=== PATIENT | female | born 1995 | race Caucasian/White ===

== ENCOUNTER 2016-05-13 11:46 | Emergency (ER) | payer BC ==
[2016-05-13 12:02] VITALS: BP 105/60
--- NOTE | 2016-05-13 12:34 | UC ---
Throat Pain/Nasal Jareth HPI - HPI Summary HPI Summary: patient has had increased sinus pressure over the last few weeks, yesterday it was very painful, denies fever. - History of Current Complaint Chief Complaint: UCRespiratory Stated Complaint: SINUSES Time Seen by Provider: 05/13/16 12:28 Hx Obtained From: Patient Hx Last Menstrual Period: 04/27/16 ?: No Onset/Duration: Sudden Onset, Lasting Days Severity: Severe Cough: Nonproductive Associated Signs & Symptoms: Positive: Sinus Discomfort, Nasal Discharge - Epiglottits Risk Factors Epiglottis Risk Factors: Negative - Allergies/Home Medications Allergies/Adverse Reactions: Allergies Allergy/AdvReac Type Severity Reaction Status Date / Time Penicillins Allergy Intermediate Hives Verified 05/13/16 11:56 Home Medications: Home Medications NK [No Home Medications Reported] 05/13/16 [History Confirmed 05/13/16] PMH/Surg Hx/FS Hx/Imm Hx Previously Healthy: Yes Endocrine History Of: Reports: Thyroid Disease - enlarged Respiratory History Of: Reports: Asthma - exercised induced - Surgical History Surgical History: None - Family History Known Family History: Negative: Cardiac Disease, Hypertension - Social History Alcohol Use: Weekly Substance Use Type: None Smoking Status (MU): Never Smoked Tobacco - Immunization History Most Recent Influenza Vaccination: None Review of Systems Constitutional: Negative Skin: Negative Eyes: Negative ENT: Ear Ache, Nasal Discharge Respiratory: Negative Cardiovascular: Negative Gastrointestinal: Negative Genitourinary: Negative Motor: Negative Neurovascular: Negative Musculoskeletal: Negative Neurological: Headache Psychological: Negative All Other Systems Reviewed And Are Negative: Yes Physical Exam Triage Information Reviewed: Yes Appearance: Well-Nourished, Ill-Appearing, Pain Distress Vital Signs: Initial Vital Signs Temp 98.5 F 05/13/16 11:57 Pulse 67 05/13/16 11:57 Resp 18 05/13/16 11:57 BP 105/60 05/13/16 11:57 Pulse Ox 99 05/13/16 11:57 Vital Signs Reviewed: Yes Eye Exam: Normal Eyes: Positive: Conjunctiva Clear ENT Exam: Normal ENT: Positive: Pharyngeal erythema, Nasal congestion, Nasal drainage, TM bulging Dental Exam: Normal Neck exam: Normal Neck: Positive: Supple, Nontender, No Lymphadenopathy Respiratory Exam: Normal Respiratory: Positive: Chest non-tender, Normal breath sounds, Wheezing, Inspiration Cardiovascular Exam: Normal Cardiovascular: Positive: RRR, No Murmur, Pulses Normal Abdominal Exam: Normal Abdomen Description: Positive: Nontender, No Organomegaly, Soft Bowel Sounds: Positive: Present Musculoskeletal Exam: Normal Musculoskeletal: Positive: Strength Intact, ROM Intact, No Edema Neurological Exam: Normal Neurological: Positive: Alert, Muscle Tone Normal Psychological Exam: Normal Skin Exam: Normal Throat Pain/Nasal Course/Dx - Course Course Of Treatment: hx obtained, exam performed, meds reviewed, educated on manual sinus drainage. prednisone prescribed. - Differential Dx/Diagnosis Differential Diagnosis/HQI/PQRI: Laryngitis, Otitis Media, Pharyngitis, Sinusitis, Tonsillitis, URI Provider Diagnoses: rhinosinusitis. wheezing Discharge - Discharge Plan Condition: Stable Disposition: HOME Patient Education Materials: Rhinosinusitis (ED) Additional Instructions: 1. Use the prednisone as prescribed 2. Use can use flonase 1-2 puffs in each notril daily 3. warm compresses to sinuses. 4. Daily Zyrtec or Claritin for fdc symptoms. 5. Increase your fluid intake
== END 2016-05-13 12:48 | disposition home or self-care (01) ==
LOC: UCCORT 11:46
DX: J32.9 Chronic sinusitis, unspecified (principal); R06.2 Wheezing; Z88.0 Allergy status to penicillin
CPT/HCPCS: 99212; G0463

== ENCOUNTER 2016-10-01 08:38 | Emergency (ER) | payer BC ==
--- NOTE | 2016-10-01 09:06 | UC ---
Lower Extremity/Ankle HPI - HPI Summary HPI Summary: 21 yo F c/o left foot pain after a fall last pm. Pt states it [birth year] her birthday last pm and she had some alcohol and she jumped up to touch a road sign while walking and when she landed she must have landed on her foot wrong and she c/o pain. Denies ankle, knee or hip pain and denies other injury. She did not fall to the ground or hit her head. She states the foot hurts so much this am that she can't even bear full weight on it. Notes bruising at the site of pain. Also notes an abrasion at the base of her 5th toe and isn't sure how she got that. History is witnessed by a female friend who concurs with the hx. - History of Current Complaint Chief Complaint: UCLowerExtremity Stated Complaint: S/P FALL LEFT FOOT INJURY Time Seen by Provider: 10/01/16 09:04 Hx Obtained From: Patient, Other: - female friend Hx Last Menstrual Period: 09/19/16 Onset/Duration: Sudden Onset, Lasting Hours, Still Present Severity Initially: Moderate Severity Currently: Moderate Pain Intensity: 8 Pain Scale Used: 0-10 Numeric Aggravating Factor(s): Standing, Ambulation Alleviating Factor(s): Nothing Able to Bear Weight: Yes - but with severe pain - Allergies/Home Medications Allergies/Adverse Reactions: Allergies Allergy/AdvReac Type Severity Reaction Status Date / Time Penicillins Allergy Intermediate Hives Verified 10/01/16 08:55 PMH/Surg Hx/FS Hx/Imm Hx Previously Healthy: Yes - Surgical History Surgical History: None - Family History Known Family History: Negative: Cardiac Disease, Hypertension - Social History 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 Alcohol Use: Weekly Substance Use Type: None Smoking Status (MU): Never Smoked Tobacco - Immunization History Most Recent Influenza Vaccination: None Review of Systems Constitutional: Negative Skin: Bruising - left foot, Other - abrasion left 5th toe Eyes: Negative ENT: Negative Respiratory: Negative Cardiovascular: Negative Gastrointestinal: Negative Genitourinary: Negative Motor: Other - pain with weight bearing Neurovascular: Negative Musculoskeletal: Arthralgia - left foot pain Neurological: Negative Psychological: Negative All Other Systems Reviewed And Are Negative: Yes Physical Exam Triage Information Reviewed: Yes Appearance: Well-Appearing, Well-Nourished, Pain Distress Vital Signs: Initial Vital Signs Temp 98.8 F 10/01/16 08:55 Pulse 78 10/01/16 08:55 Resp 16 10/01/16 08:55 BP 92/60 10/01/16 08:55 Pulse Ox 99 10/01/16 08:55 Vital Signs Reviewed: Yes Eyes: Positive: Conjunctiva Clear ENT: Positive: Normal ENT inspection Neck: Positive: Supple Respiratory: Positive: No respiratory distress Cardiovascular: Positive: RRR, Pulses Normal, Brisk Capillary Refill Musculoskeletal: Positive: Strength Intact, ROM Limited @ - left foot due to pain, Other: - point tenderness base of left 5th metatarsal Neurological: Positive: Alert, Muscle Tone Normal Psychological Exam: Normal Skin: Positive: Other - abrasion/skin avulsion dorsal surface left 5th MTP joint Lower Extremity Course/Dx - Course Course Of Treatment: xray: nondisplaced fx base of 5th metatarsal. discussed abrasion renders this similar to an open fracture, with risk for osteomyelitis, even though the abrasion is distal to the site of the fracture. Will treat with antibiotics to prevent infection. Note: last tetanus was not verified prior to DC. Pt is in school, expect that tetanus status is UTD for college. Wound was cleansed and bandaged by RN. Pt placed in a post op shoe and crutches and instructed nonweight bearing. Advised definite follow up for possible Fuchs fracture, and to ensure no infection. Pt and friend voice understanding. Pt declines work note, but understands no sports until cleared by Dr. Franco, orthopedist. - Differential Dx/Diagnosis Differential Diagnosis/HQI/PQRI: Contusion, Fracture (Closed), Fracture (Open), Infection, Sprain, Strain Provider Diagnoses: fracture left 5th metatarsal, nondisplaced, acute. abrasion left 5th MTP joint Discharge - Discharge Plan Condition: Stable Disposition: HOME Prescriptions: Cephalexin CAP* [Keflex 500 CAP*] 500 mg PO QID #28 cap Patient Education Materials: Foot Fracture in Adults (ED), Abrasion (ED) Referrals: Ulises Franco MD [Medical Doctor] - 3 Days Non Staff,Doctor [Primary Care Provider] - 2 Days Additional Instructions: Take the antibiotic as directed to prevent infection. Have definite follow up with Dr. Franco, the orthopedist, in the next few days. Wear the post op shoe and use the crutches with non weight bearing until instructed otherwise by Dr. Franco. Wash the cut on your foot and use antibiotic ointment and change the bandage every day. Return to urgent care if any new or worsening symptoms.
--- NOTE | 2016-10-01 09:29 | RAD ---
HISTORY: Fall, left foot pain COMPARISONS: None VIEWS: 3, Frontal, lateral, and oblique views of the left foot FINDINGS: BONE DENSITY: Normal. BONES: There is a nondisplaced fracture of the base of the fifth metatarsal with articular extension JOINTS: There is no arthropathy. ALIGNMENT: There is no dislocation. SOFT TISSUES: Unremarkable. OTHER FINDINGS: None. IMPRESSION: NONDISPLACED FRACTURE OF THE BASE OF THE FIFTH METATARSAL
[2016-10-01 10:58] VITALS: BP 103/66
== END 2016-10-01 11:11 | disposition home or self-care (01) ==
LOC: UCCORT 08:38
DX: S92.355A Nondisplaced fracture of fifth metatarsal bone, left foot, initial encounter for closed fracture (principal); S90.415A Abrasion, left lesser toe(s), initial encounter; X58.XXXA Exposure to other specified factors, initial encounter; Y93.9 Activity, unspecified; Y92.9 Unspecified place or not applicable; Z88.0 Allergy status to penicillin
CPT/HCPCS: 99213; G0463

== ENCOUNTER 2017-02-23 12:13 | Emergency (ER) | payer BC ==
[2017-02-23 13:05] VITALS: BP 111/63
--- NOTE | 2017-02-23 13:19 | UC ---
Throat Pain/Nasal Jareth HPI - HPI Summary HPI Summary: sore throat x 1 week + fever, chills, fatigue, swollen neck glands - History of Current Complaint Chief Complaint: UCRespiratory Stated Complaint: SORE THROAT,ACHY Time Seen by Provider: 02/23/17 13:07 Hx Obtained From: Patient Hx Last Menstrual Period: 02/17/16 ?: No Onset/Duration: Gradual Onset, Lasting Weeks - 1, Still Present Severity: Moderate Cough: None Associated Signs & Symptoms: Positive: Drooling, Fever. Negative: Dysphagia, FB Sensation, Sinus Discomfort, Nasal Discharge, Vomiting, Rash - Allergies/Home Medications Allergies/Adverse Reactions: Allergies Allergy/AdvReac Type Severity Reaction Status Date / Time Penicillins Allergy Intermediate Hives Verified 02/23/17 13:05 Home Medications: Home Medications NK [No Home Medications Reported] 02/23/17 [History Confirmed 02/23/17] PMH/Surg Hx/FS Hx/Imm Hx Endocrine History: Thyroid Disease Respiratory History: Asthma - Surgical History Surgical History: None - Family History Known Family History: Negative: Cardiac Disease, Hypertension - Social History Alcohol Use: Weekly Substance Use Type: None Smoking Status (MU): Never Smoked Tobacco - Immunization History Most Recent Influenza Vaccination: None Review of Systems Constitutional: Fever, Chills, Fatigue Skin: Negative Eyes: Negative ENT: Sore Throat Respiratory: Negative Cardiovascular: Negative Musculoskeletal: Myalgia Neurological: Weakness Is Patient Immunocompromised?: No All Other Systems Reviewed And Are Negative: Yes Physical Exam Triage Information Reviewed: Yes Appearance: Well-Appearing, No Pain Distress, Well-Nourished Vital Signs: Initial Vital Signs Temp 98.5 F 02/23/17 13:01 Pulse 65 02/23/17 13:01 Resp 16 02/23/17 13:01 BP 111/63 02/23/17 13:01 Pulse Ox 99 02/23/17 13:01 Vital Signs Reviewed: Yes Eyes: Positive: Conjunctiva Clear ENT: Positive: Normal ENT inspection, Hearing grossly normal, Pharyngeal erythema, TMs normal, Tonsillar swelling, Tonsillar exudate Neck: Positive: Supple, Tenderness @, Enlarged Nodes @ Respiratory Exam: Normal Respiratory: Positive: Chest non-tender, Lungs clear, Normal breath sounds Cardiovascular: Positive: RRR, No Murmur, Pulses Normal Abdomen Description: Positive: Nontender, Soft Bowel Sounds: Positive: Present Musculoskeletal Exam: Normal Skin Exam: Normal Throat Pain/Nasal Course/Dx - Differential Dx/Diagnosis Provider Diagnoses: pharyngitis Discharge - Discharge Plan Condition: Stable Disposition: HOME Patient Education Materials: Mononucleosis (ED) Referrals: Non Staff,Doctor [Primary Care Provider] - 7 Days Additional Instructions: negative rapid strep will check for [place] cont. with rest, increase fluid, take Ibuprofen as needed for pain or fever no contact sports
--- NOTE | 2017-02-24 07:30 | UC ---
- Progress Note Progress Note: Please call patient to inform them that monospot is positive. Maintain contact precautions and supportive care. REturn for any worsening.
== END 2017-02-23 13:55 | disposition home or self-care (01) ==
LOC: UCCORT 12:13
DX: J02.9 Acute pharyngitis, unspecified (principal); Z72.89 Other problems related to lifestyle
CPT/HCPCS: 36415; 86308; 87651; 99211; G0463

== ENCOUNTER 2017-08-31 11:48 | Emergency (ER) | payer SELFPAY ==
[2017-08-31 12:16] VITALS: BP 106/70
--- NOTE | 2017-08-31 12:42 | UC ---
Psychiatric Complaint HPI - HPI Summary HPI Summary: sever anxiety / panic attack started 2 hrs ago , c/o chest tightness , numbness of both hands and cramping racing heart, sob, heavy breathing getting better at the office - History Of Current Complaint Chief Complaint: UCDizziness Stated Complaint: PANIC ATTACK Time Seen by Provider: 08/31/17 12:15 Hx Obtained From: Patient Hx Last Menstrual Period: 02/17/16 ?: No Onset/Duration: Sudden Onset, Lasting Hours - 2, Resolved Timing: Intermittent Episode Lasting - 2 hrs Severity Initially: Severe Severity Currently: Mild Character: Depressed, Anxious, Frustrated Aggravating Factor(s): Recent Stress Alleviating Factor(s): Counseling Related History: Positive For: Prior Psychiatric Issues - anxiety - Allergies/Home Medications Allergies/Adverse Reactions: Allergies Allergy/AdvReac Type Severity Reaction Status Date / Time Penicillins Allergy Intermediate Hives Verified 08/31/17 12:14 PMH/Surg Hx/FS Hx/Imm Hx - Additional Past Medical History Additional PMH: anemia Psychological History: Anxiety - Surgical History Surgical History: None - Family History Known Family History: Negative: Cardiac Disease, Hypertension - Social History Alcohol Use: Occasionally Substance Use Type: None Smoking Status (MU): Never Smoked Tobacco - Immunization History Most Recent Influenza Vaccination: None Review of Systems Constitutional: Negative Skin: Negative Eyes: Negative ENT: Negative Respiratory: Negative Cardiovascular: Negative Genitourinary: Negative Psychological: Anxious Is Patient Immunocompromised?: No All Other Systems Reviewed And Are Negative: Yes Physical Exam Triage Information Reviewed: Yes Appearance: Well-Appearing, No Pain Distress, Well-Nourished Vital Signs: Initial Vital Signs Temp 98.4 F 08/31/17 12:05 Pulse 55 08/31/17 12:05 Resp 22 08/31/17 12:05 BP 106/70 08/31/17 12:05 Pulse Ox 100 08/31/17 12:05 Vital Signs Reviewed: Yes Eyes: Positive: Conjunctiva Clear ENT: Positive: Normal ENT inspection, Hearing grossly normal, Pharynx normal Neck: Positive: Supple, Nontender, No Lymphadenopathy Respiratory: Positive: Chest non-tender, Lungs clear, Normal breath sounds Cardiovascular: Positive: RRR, No Murmur, Pulses Normal Musculoskeletal Exam: Normal Musculoskeletal: Positive: Strength Intact Neurological: Positive: Alert, Muscle Tone Normal Psychological: Positive: Age Appropriate Behavior Skin Exam: Normal UC Physical Exam Vital Signs On Initial Exam: Initial Vitals Temp Pulse Resp BP Pulse Ox 98.4 F 55 22 106/70 100 08/31/17 12:05 08/31/17 12:05 08/31/17 12:05 08/31/17 12:05 08/31/17 12:05 - Psychiatric Exam Psychiatric: Anxious Mood: Anxious Appearance: Anxious Thought Process: Logical Memory: Intact Judgement: Normal Psych Complaint Course/Dx - Differential Dx/Diagnosis Provider Diagnoses: anxiety Discharge - Sign-Out/Discharge Documenting (check all that apply): Patient Departure - Discharge Plan Condition: Stable Disposition: HOME Prescriptions: ALPRAZolam [Xanax] 0.5 mg PO Q8H PRN #15 tablet MDD 1.5 mg PRN Reason: Anxiety - Severe Citalopram TAB* [Celexa TAB*] 20 mg PO DAILY #30 tab Patient Education Materials: Panic Attack (ED) Referrals: No Primary Care Phys,NOPCP [Primary Care Provider] - 7 Days - Billing Disposition and Condition Condition: STABLE Disposition: Home
[2017-08-31 19:27] LABS: ABS Basophils 0.1 10^3/ul (0-0.2); ABS Eosinophils 0.1 10^3/ul (0-0.6); ABS Lymphocytes 1.7 10^3/ul (1.0-4.8); ABS Monocytes 0.4 10^3/ul (0-0.8); ABS Neutrophils 4.2 10^3/ul (1.5-7.7); ABS Nucleated RBC 0 10^3/ul; Eosinophil % 1.3 % (0-6); Hematocrit 37 % (35-47); Hemoglobin 11.9 g/dl (12.0-16.0); Lymphocyte % 26.4 % (25-47); Mean Corpuscular HGB Conc 32 g/dl (31-36); Mean Corpuscular Hemoglobin 20 pg (27-31); Mean Corpuscular Volume 64 fL (80-97); Mean Platelet Volume 12.4 um3 (7.4-10.4); Nucleated Red Blood Cells % 0.1; Platelet Count 222 10^3/ul (150-450); Red Blood Count 5.87 10^6/ul (4.00-5.40); Red Cell Distribution Width 16 % (10.5-15); White Blood Count 6.5 10^3/ul (3.5-10.8)
== END 2017-08-31 12:47 | disposition home or self-care (01) ==
LOC: UCCORT 11:48
DX: F41.9 Anxiety disorder, unspecified (principal); Z88.0 Allergy status to penicillin
CPT/HCPCS: 36415; 84443; 85025; 85060; 99212; G0463